=== PATIENT | female | born 1960 | race Two or more races ===

== ENCOUNTER → 2025-03-13 | Outpatient (CLI) | payer MEDICAID, SELFPAY ==
--- NOTE | 2025-03-13 12:30 | XR_ITS ---
Examination: Ultrasound liver elastography Date and time: March 13, 2025 1245 hours INDICATIONS: Gastroesophageal reflux, fatty liver diagnosis 4 months ago TECHNIQUE AND FINDINGS: Sonographic images liver with assessment of tissue stiffness average Liver 13.1 cm Hyperechoic vascular lesion in the left lobe of the liver 5.8 x 6.2 x 4.8 cm Normal hepatopedal portal venous flow Tissues stiffness average 1.9 m/s, moderate to severe liver fibrosis IMPRESSION: Moderate to severe liver fibrosis Large left lobe liver lesion, 5.8 x 6.2 x 4.8 cm, recommend MRI abdomen liver follow-up pre and postcontrast to assess liver lesion
== END | disposition home or self-care (01) ==
PROVIDERS: PCP Nurse Practitioner Family; Referring Provider Internal Medicine Gastroenterology; Visit Provider Internal Medicine Gastroenterology
DX: K74.00 Hepatic fibrosis, unspecified (principal)
CPT/HCPCS: 76981

== ENCOUNTER → 2025-07-02 | Outpatient (CLI) | payer MEDICAID, SELFPAY ==
[2025-07-02 13:40] LABS: Blood Urea Nitrogen 10 mg/dL (9-23); Creatinine (Component) 1.1 mg/dL (0.6-1.3); eGFR 56 See Note
== END | disposition home or self-care (01) ==
PROVIDERS: PCP Obstetrics & Gynecology; Referring Provider Physician Assistant; Visit Provider Physician Assistant
DX: K21.9 Gastro-esophageal reflux disease without esophagitis (principal); R16.0 Hepatomegaly, not elsewhere classified; R10.13 Epigastric pain
CPT/HCPCS: 36415; 82565; 84520

== ENCOUNTER → 2025-07-03 | Outpatient (CLI) | payer MEDICAID, SELFPAY ==
--- NOTE | 2025-07-03 08:45 | XR_ITS ---
Examination: MRI abdomen with intravenous contrast. MRI abdomen without intravenous contrast. Date and time of exam: July 03, 2025, 0913 hours INDICATIONS: Diagnosis left lobe liver lesion 5.8 x 6.2 cm on ultrasound liver March 13, 2025 Technique: Multiple axial, sagittal and coronal sections of the abdomen obtained. Transverse images, TR 6020, TE 107. T1 weighted transverse images, TR 582, TE 9.5. T2-weighted sagittal images, TR 4000, TE 105. T2-weighted sagittal images, TR 4000, TE 5. Coronal images, TR 4210, TE 107. Axial and coronal images are obtained post 20 gadolinium FINDINGS: No definite left lobe or right lobe liver lesion depicted on this study No enhancing liver or splenic lesion on the postcontrast images Liver is not enlarged Coronal image 14 is suspicious for 4 mm common bile duct stone No pancreatic mass Spleen is not enlarged No hydronephrosis No ascites Aorta normal size IMPRESSION: No enhancing liver lesion is depicted Suspicious for 4 mm common bile duct stone, consider ERCP follow-up
== END | disposition home or self-care (01) ==
PROVIDERS: PCP Obstetrics & Gynecology; Referring Provider Internal Medicine Gastroenterology; Visit Provider Internal Medicine Gastroenterology
DX: R10.11 Right upper quadrant pain (principal); R10.13 Epigastric pain
CPT/HCPCS: 74183; A9577